=== PATIENT | female | born 1955 | race Asian ===

== ENCOUNTER → 2016-08-04 | Outpatient (CLI) | payer BC ==
[~2016-08-04] MED LIST: CALCIUM1 CAP PO; EPA FISH OIL1000 MG PO; MULTIPLE VITAMI1 CAP PO; PRIL40 PO; PROVENTIL0.09 MG/A1 IH; VITAMIN D 400400 IU PO; VIVELLE TD
[2016-08-04 07:37] LABS: BASO % 0.6 % (0.0-2.0); EOS # 0.2 (0.0-0.7); GRAN # 3.3 (1.4-6.5); GRAN % 63.5 % (42.2-75.2); HEMATOCRIT 43.7 % (37.0-47.0); HEMOGLOBIN 14.9 g/dl (12.5-16.0); LYMPH # 1.2 (1.2-3.4); LYMPH % 22.5 % (20.0-51.0); MEAN CELL VOLUME 92 fl (80.0-100.0); MEAN CORPUSCULAR HEMOGLOBIN 31 pg (27.0-31.0); MEAN CORPUSCULAR HGB CONC 34 g/dl (33.0-37.0); MEAN PLATELET VOLUME 10.7 fl (7.4-10.4); MONO # 0.5 (0.1-0.6); MONO % 9.2 % (1.7-9.3); PLATELET COUNT 245 K/mm3 (130-400); RED BLOOD COUNT 4.77 M/mm3 (4.10-5.30); REDCELL DISTRIBUTION WIDTH-CV 12.8 % (11.5-14.5); WHITE BLOOD COUNT 5.2 K/mm3 (4.8-10.8)
[2016-08-04 07:48] LABS: ADJUSTED CALCIUM 9.3 mg/dL (8.4-10.2); ALBUMIN 4.8 gm/dL (3.5-5.0); BILIRUBIN,TOTAL 0.6 mg/dL (0.0-1.0); CALCIUM 9.9 mg/dL (8.4-10.2); CREATININE, serum 0.68 mg/dL (0.52-1.25); TOTAL PROTEIN 7.9 gm/dL (6.4-8.2)
[2016-08-04 08:30] LABS: THYROID STIMULATING HORMONE 4.11 uIU/mL (0.465-4.680)
== END ==
LOC: COL.LAB 07:06
PROVIDERS: Internal Medicine
DX: Z00.00 Encounter for general adult medical examination without abnormal findings (principal); R73.09 Other abnormal glucose; R94.6 Abnormal results of thyroid function studies; Z11.59 Encounter for screening for other viral diseases
CPT/HCPCS: 87522

== ENCOUNTER → 2017-05-21 | Outpatient (CLI) | payer BC | LOC: MC.RAD 13:27 | DX: Z12.31 Encounter for screening mammogram for malignant neoplasm of breast (principal) ==

== ENCOUNTER → 2018-07-01 | Outpatient (CLI) | payer BC | LOC: MC.RAD 08:53 | DX: Z12.31 Encounter for screening mammogram for malignant neoplasm of breast (principal); N63.10 Unspecified lump in the right breast, unspecified quadrant ==

== ENCOUNTER → 2018-07-04 | Outpatient (CLI) | payer OTHER | LOC: MC.RAD 12:49 | DX: N60.01 Solitary cyst of right breast (principal) ==

== ENCOUNTER → 2019-01-07 | Outpatient (CLI) | payer OTHER | LOC: MC.RAD 13:00 | DX: N60.01 Solitary cyst of right breast (principal) ==

== ENCOUNTER → 2019-07-24 | Outpatient (CLI) | payer OTHER | LOC: MC.RAD 07:14 | DX: Z12.31 Encounter for screening mammogram for malignant neoplasm of breast (principal) ==

== ENCOUNTER 2019-10-23 08:00 | Outpatient (RCR) | payer OTHER | END 2019-12-02 | disposition home or self-care (01) | LOC: WSPT | DX: M25.511 Pain in right shoulder (principal) ==

== ENCOUNTER → 2020-07-26 | Outpatient (CLI) | payer OTHER | LOC: MC.RAD 12:28 | DX: Z12.31 Encounter for screening mammogram for malignant neoplasm of breast (principal) ==